=== PATIENT | female | born 1960 | race Caucasian/White ===

== ENCOUNTER 2019-04-03 08:21 | Emergency (ER) | payer OTHER ==
[~2019-04-03] VITALS: Ht 182.9 cm; Wt 127.0 kg
[2019-04-03 08:54] VITALS: BP 150/111
[2019-04-03] MEDS ORDERED: HYDROcodone-ACET 5/325MG TAB PO ONE (09:00)
[2019-04-03] MEDS ORDERED: KETOROLAC TROMETH 60MG/2ML VIAL IM ONE (09:15)
== END 2019-04-03 09:24 | disposition home or self-care (01) ==
LOC: ER 08:25
DX: S52.532A Colles' fracture of left radius, initial encounter for closed fracture (principal); W19.XXXA Unspecified fall, initial encounter; I10 Essential (primary) hypertension; Z88.2 Allergy status to sulfonamides; Y93.89 Activity, other specified; Y99.8 Other external cause status; Y92.89 Other specified places as the place of occurrence of the external cause
CPT/HCPCS: 29125; 73110; 96372; 99283; J1885